=== PATIENT | female | born 1980 | race Caucasian/White ===

== ENCOUNTER 2021-12-24 09:41 | Emergency (ER) | payer BC ==
[2021-12-24] VITALS (8 sets, daily range): BP systolic 113–140; BP diastolic 66–82
[~2021-12-24] VITALS: Ht 157.5 cm; Wt 68.0 kg
[~2021-12-24 09:41] MED LIST: ATENOLOL25 MG PO; ATENOLOL50 MG PO; IRON325 MG PO; KEFLEX500 MG PO; LABETALOL100 MG PO; LISINOPRIL10 MG PO; LISINOPRIL20 MG PO; MAXIDE1 COMBO PO; METFORMIN500 MG PO; MOTRIN800 MG PO; NAPROSYN375 MG PO; OB COMPLET2; PROPYLTHIOUR50 MG; PROPYLTHIOUR50 MG PO; TAPAZOLE10 MG PO; TENORMIN50 MG PO; TRAZODONE50 MG PO; ULTRAM50 MG OR; WELLBUTRIN SR100 MG PO; ZOFRAN ODT4 MG PO; ZOFRAN4 MG/TAB PO
[2021-12-24] MEDS ORDERED: OZEMPIC2 MG/1.5 M (10:00)
[2021-12-24 10:10] LABS: HEMATOCRIT 35.9 % (37.0-47.0); HEMOGLOBIN 11.7 g/dl (12.0-16.0); IMMATURE GRANULOCYTES 0.1 % (0.0-5.0); MEAN CELL VOLUME 93.7 fL CALC (80.0-100.0); MEAN CORPUSCULAR HGB 30.5 pG CALC (26.0-32.0); MEAN CORPUSCULAR HGB CONC 32.6 g/dL CAL (32.0-36.0); NEUT# 7.61 thou/uL (2.00-7.15); RED BLOOD COUNT 3.83 mill/uL (4.20-5.60); RED CELL DISTRI WIDTH 13.2 % (11.5-15.5)
[2021-12-24 10:22] LABS: ALBUMIN 4.3 g/dL (3.2-5.0); ALKALINE PHOSPHATASE 101 u/l (38-126); ANION GAP 15 (6-22 (CALC)); BUN 19 mg/dL (7-17); BUN/CREATININE RATIO 19 (12-20 (CALC)); CARBON DIOXIDE 24 mmol/l (22-30); CHLORIDE 103 mmol/l (95-108); GFR > 60 ML/MIN (>=60 (CALC)); GFR FOR AFR.AMER. > 60 ML/MIN (>=60 (CALC)); POTASSIUM 4.3 mmol/l (3.5-5.1); SGOT/AST 31 u/l (14-36); SODIUM 137 mmol/l (137-146); TOTAL PROTEIN 7.8 g/dL (6.3-8.2)
[2021-12-24 10:26] LABS: BILIRUBIN, TOTAL 0.6 mg/dL (0.0-1.4)
[2021-12-24 10:56] LABS: URINE BILIRUBIN - DIPSTICK NEGATIVE (NEGATIVE); URINE BLOOD DIPSTICK MODERATE (NEGATIVE); URINE COLOR YELLOW; URINE GLUCOSE - DIPSTICK NEGATIVE (NEGATIVE); URINE KETONE NEGATIVE (NEGATIVE); URINE LEUK ESTERASE TRACE (NEGATIVE); URINE NITRITE - DIPSTICK NEGATIVE (Negative); URINE PH 5.5 (4.5-8.0); URINE PROTEIN - DIPSTICK NEGATIVE (NEG-TRACE); URINE SPECIFIC GRAVITY 1.025; URINE UROBILINOGEN - DIPSTICK 0.2 E.U./dL (0.2)
[2021-12-24 11:07] LABS: URINE SQUAMOUS EPITHELIAL CELL FEW EPI/hpf (0-FEW); URINE WBC 0-2 WBC/hpf (0-5)
[2021-12-24] MEDS ORDERED: ONDANSETRON4 MG PO (11:29)
== END 2021-12-24 11:34 | disposition home or self-care (01) | DRG 392 ==
LOC: ED 09:41
PROVIDERS: Family Medicine
DX: R10.30 Lower abdominal pain, unspecified (principal); N83.202 Unspecified ovarian cyst, left side; E11.22 Type 2 diabetes mellitus with diabetic chronic kidney disease; I12.9 Hypertensive chronic kidney disease with stage 1 through stage 4 chronic kidney disease, or unspecified chronic kidney disease; N18.9 Chronic kidney disease, unspecified; Z79.84 Long term (current) use of oral hypoglycemic drugs

== ENCOUNTER 2022-03-25 06:31 | Emergency (ER) | payer BC ==
[~2022-03-25] VITALS: Ht 157.5 cm; Wt 74.0 kg
[~2022-03-25 06:31] MED LIST changes: +METFORMIN500 M2 PO; +ONDANSETRON4 MG PO; +OZEMPIC2 MG/1.5 M
[2022-03-25 07:14] LABS: IMMATURE GRANULOCYTES 0.2 % (0.0-5.0); MEAN CELL VOLUME 94.9 fL CALC (80.0-100.0); MEAN CORPUSCULAR HGB 30.8 pG CALC (26.0-32.0); MEAN CORPUSCULAR HGB CONC 32.4 g/dL CAL (32.0-36.0); NEUT# 8.36 thou/uL (2.00-7.15); RED BLOOD COUNT 3.9 mill/uL (4.20-5.60); RED CELL DISTRI WIDTH 13.3 % (11.5-15.5); URINE BILIRUBIN - DIPSTICK NEGATIVE (NEGATIVE); URINE BLOOD DIPSTICK NEGATIVE (NEGATIVE); URINE COLOR YELLOW; URINE GLUCOSE - DIPSTICK NEGATIVE (NEGATIVE); URINE KETONE TRACE mg/dL (NEGATIVE); URINE LEUK ESTERASE NEGATIVE (NEGATIVE); URINE PROTEIN - DIPSTICK NEGATIVE (NEG-TRACE); URINE SPECIFIC GRAVITY >=1.030; URINE UROBILINOGEN - DIPSTICK 0.2 E.U./dL (0.2)
[2022-03-25 07:16] LABS: URINE NITRITE - DIPSTICK NEGATIVE (Negative)
[2022-03-25 07:28] LABS: ALBUMIN 4.2 g/dL (3.2-5.0); BILIRUBIN, TOTAL 0.6 mg/dL (0.0-1.4); CREATININE 1.4 mg/dL (0.5-1.0); POTASSIUM 4.3 mmol/l (3.5-5.1); TOTAL PROTEIN 7.6 g/dL (6.3-8.2)
[2022-03-25] MEDS ORDERED: MAXZIDE-25MG1 COMBO PO (07:43)
[2022-03-25 08:17] VITALS: BP 121/71
[2022-03-25 08:30] VITALS: BP 116/71
[2022-03-25] MEDS ORDERED: ONDANSETRON4 MG PO (08:42)
[2022-03-25] MEDS ORDERED: PREVACID30 M3 PO (08:42)
[2022-03-25 09:00] VITALS: BP 113/71
== END 2022-03-25 09:16 | disposition home or self-care (01) | DRG 392 ==
LOC: ED 06:31
PROVIDERS: Family Medicine
DX: R10.13 Epigastric pain (principal); K52.9 Noninfective gastroenteritis and colitis, unspecified
CPT/HCPCS: Q9967

== ENCOUNTER 2023-08-18 11:30 | Inpatient (IN) | payer OTHER ==
[~2023-08-18] VITALS: Ht 157.5 cm; Wt 72.8 kg
[~2023-08-18 11:30] MED LIST changes: +AMOX/K CLAV875 M1 PO; +BUPROPION HCL150 MG PO; +LISINOPRIL20 M1 PO; +MAXZIDE-25MG1 COMBO PO; +MULTIVITAMI1 PO; +PREVACID30 M3 PO; +PROZAC10 MG PO; +TRULICITY1.5 MG/0.5
[2023-08-18 12:57] VITALS: BP 121/68
--- NOTE | 2023-08-18 13:00 | NUR ---
PT ARRIVED TO [facility] VIA AMBULATORY. PT A/OX3 PT NPO ICE CHIPS ONLY NO TELE. IV 20G INSERTED BY RN TO RAC. ON ROOM AIR.PT STATED LAST BM 08/17/23.STATED URINATES WITH NO PROBLEM. PT DENIES ADDITIONAL NEEDS AT THE TIME ALL SAFETY PRECAUTIONS IN PLACE. ALL SAFETY PRECAUTIONS IN PLACE WITH CALL LIGHT IN REACH.
[2023-08-18] MEDS ORDERED: METHIMAZOLE10 MG PO (14:12)
--- NOTE | 2023-08-18 16:03 | NUR ---
PT RECIEVING ABX LATE BOLUS GIVEN FIRST ONLY ONE IV.
--- NOTE | 2023-08-18 18:38 | NUR ---
PT ARRIVED TO [facility] VIA AMBULATORY .DIRECT ADMIT PER . PT A/OX3 RESPIRATIONS ON ROOM AIR. IV SITE INSERTED BY RN. PT STATED VOIDED THIS MORNING. BM 08/17/23 AM . PT DENIES ADDITIONAL NEEDS AT THE TIME OTHER THAN ICE CHIPS. PT AWARE NPO ICE CHIPS ONLY.ALL SAFTEY PRECAUTIONS IN PLACE WITH CALL LIGHT IN REACH.
[2023-08-18 19:38] VITALS: BP 104/56
[2023-08-19 03:53] VITALS: BP 95/54
[2023-08-19 04:30] LABS: BASO% 0.3 % (0-3); EOS% 1.2 % (0-8); IMMATURE GRANULOCYTES 0.1 % (0.0-5.0); LYMPH% 21.7 % (15-41); MEAN CELL VOLUME 97.5 fL CALC (80.0-100.0); MEAN CORPUSCULAR HGB 32.4 pG CALC (26.0-32.0); MEAN CORPUSCULAR HGB CONC 33.2 g/dL CAL (32.0-36.0); MONO% 4.4 % (2-13); NEUT# 5.47 thou/uL (2.00-7.15); NEUT% 72.3 % (42-76); RED BLOOD COUNT 3.24 mill/uL (4.20-5.60); RED CELL DISTRI WIDTH 12.5 % (11.5-15.5)
[2023-08-19 04:39] LABS: HEMATOCRIT 31.6 % (37.0-47.0); HEMOGLOBIN 10.5 g/dl (12.0-16.0)
[2023-08-19 04:50] LABS: CREATININE 1.4 mg/dL (0.5-1.0); POTASSIUM 4.4 mmol/l (3.5-5.1)
--- NOTE | 2023-08-19 07:15 | NUR ---
REPORT RECEIVED FROM VU CARDOZA
[2023-08-19 07:39] VITALS: BP 94/48
--- NOTE | 2023-08-19 07:41 | NUR ---
Patient is NPO, had low BS 71 stated felt weak , orange juice given and small cup of ice, patient now shows no signs of hypoglycemia.
--- NOTE | 2023-08-19 08:50 | NUR ---
PT RESTING IN SEMI FOWLERS POSITION,A&O X3;ASSESSMENT COMPLETED;PT REPORTS MINIMAL ABDOMINAL PAIN AT THIS TIME, DENIES THE NEED FOR PAIN MEDICATION;RESPIRATIONS EVEN AND UNLABORED ON RA,CLEAR LUNG SOUNDS;ABDOMEN SOFT ON PALPATION AND ACTIVE IN ALL 4 QUADRANTS;STRONG PEDAL PULSES;SKIN INTACT;#20G TO RAC INFUSING D5 1/2 NS @ 150ML/HR,SITE APPEARS HEALTHY;ACCUCHECK 71, PT WAS PROVIDED ORANGE JUICE FROM [employer];NPO DIET REINFORCED;PT DENIES ANY ADDITIONAL NEEDS AND IS ENCOURAGED TO CALL FOR ASSISTANCE IF NEEDED;FALL PRECAUTIONS IN PLACE WITH BED IN THE LOWEST POSITION AND CALL LIGHT IN REACH;FREQUENT ROUNDS MADE.
--- NOTE | 2023-08-19 09:00 | NUR ---
CALL PLACED TO . PT CURRENTLY NPO BUT HAS PO MEDICATION ORDERED. AWAITING CALL BACK FOR CLARIFICATION.
--- NOTE | 2023-08-19 11:20 | NUR ---
SPOKE TO . OK TO GIVEN PO MEDICATIONS THIS MORNING.
[2023-08-19 12:00] VITALS: BP 116/64
--- NOTE | 2023-08-19 12:03 | NUR ---
DR ROSS AT BEDSIDE DISCUSSING PLAN OF CARE WITH PATIENT.
--- NOTE | 2023-08-19 13:00 | NUR ---
PT RESTING IN SEMI FOWLERS POSITION WITH VISITOR AT BEDSIDE;RESPIRATIONS EVEN AND AND UNLABORED ON RA;PT DENIES ANY CURRENT PAIN OR NEEDS;IV SITE PATENT INFUSING WITH EASE;DIET ADVANCED AND WATER PROVIDED;PT ENCOURAGED TO CALL FOR ASSISTANCE IF NEEDED;CALL LIGHT IN REACH;FREQUENT ROUNDS MADE.
[2023-08-19 16:00] VITALS: BP 100/53
--- NOTE | 2023-08-19 16:20 | NUR ---
PT RESTING IN SEMI FOWLERS POSITION;RESPIRATIONS EVEN AND UNLABORED ON RA;PT DENIES ANY CURRENT PAIN OR NEEDS;IV SITE TO RAC REMAINS PATENT;ACCUCHECK 141, NO COVERAGE NEEDED;PT ENCOURAGED TO CALL FOR ASSISTANCE IF NEEDED;FALL PRECAUTIONS IN PLACE WITH BED IN THE LOWEST POSITION AND CALL LIGHT IN REACH;FREQUENT ROUNDS MADE.
[2023-08-19 19:25] VITALS: BP 122/67
--- NOTE | 2023-08-19 20:00 | NUR ---
RECEIVED BEDSIDE REPORT FROM DAY NURSE, PT. IN BED, AWAKE & ALERT, HER IN ATTENDANCE, ASSESSMENT DONE, V/S RECORDED, RT AC SL, PATENT, IN PLACE, SHE IS ON GRIS AIR, AD VANDA, NO COMPLAINT NOTED, INSTRUCTED TO CALL FOR NURSE IF ANY ASSISTANCE IN NEDEED, BEDSIDE TABLE & CALL NUNO WITHIN HER REACH.
--- NOTE | 2023-08-20 | NUR ---
NO COMPLAINT NOTED, DOES NOT WANT ANY PAIN MED AT THIS TIME, SAFETY PRECAUTION MAINTAINED.
--- NOTE | 2023-08-20 04:00 | NUR ---
PT. IS IN BED, AWAKE, NO COMPLAINT NOTED, RT. AC SL IN PLACE, AD VANDA TO THE BATHROOM,
[2023-08-20 04:40] VITALS: BP 104/58
[2023-08-20 05:02] VITALS: BP 104/58
[2023-08-20 06:30] VITALS: BP 129/68
[2023-08-20 07:08] VITALS: BP 129/68
--- NOTE | 2023-08-20 07:46 | NUR ---
GOT REPORT FROM MECHANICAL PLANNER NURSE AT BEDSIDE. PATIENT ASSESSED AND IS AOX3. PATIENT DENIES ANY DISTRESS OR CONCERNS. NO QUESTIONS AT THIS TIME. BED ALARM IS ON WITH CALL LIGHT AND BEDSIDE TABLE WITH IN REACH. ADVISED TO CALL IF NEEDING ANYTHING. PATIENT VOICED AGREEMENT.
--- NOTE | 2023-08-20 09:16 | NUR ---
Discharge instructions given. Patient verbalizes understanding of same. Discharged in stable condition via Ambulatory to Home with family. All belongings sent with pt.
== END 2023-08-20 09:15 | disposition home or self-care (01) | DRG 394 ==
LOC: MS2 11:30
PROVIDERS: ADMIT Surgery; ATTEND Surgery
DX: K52.1 Toxic gastroenteritis and colitis (principal); R18.8 Other ascites; T38.3X5A Adverse effect of insulin and oral hypoglycemic [antidiabetic] drugs, initial encounter; E86.0 Dehydration; K80.20 Calculus of gallbladder without cholecystitis without obstruction; E11.22 Type 2 diabetes mellitus with diabetic chronic kidney disease; I12.9 Hypertensive chronic kidney disease with stage 1 through stage 4 chronic kidney disease, or unspecified chronic kidney disease; N18.9 Chronic kidney disease, unspecified; Z79.84 Long term (current) use of oral hypoglycemic drugs; Z79.85 Long-term (current) use of injectable non-insulin antidiabetic drugs
CPT/HCPCS: Q9967

== ENCOUNTER 2024-03-31 10:17 | Day surgery (SDC) | payer OTHER ==
[~2024-03-31] VITALS: Ht 157.5 cm; Wt 79.4 kg
[~2024-03-31 10:17] MED LIST changes: +B COMPLEX FORMU1 TAB PO; +BCP PO; +CIPROFLOXACN500 MG PO; +FARXIGA10 MG PO; +FLORASTOR250 M1 PO; +METHIMAZOLE10 MG PO; +METRONIDAZOLE500 MG PO; +OZEMPIC 8 MG/3M1 INJ SC; +PERCOCET 5/325M1 TAB PO
[2024-03-31] MEDS ORDERED: SODIUM CHLORIDE 0.9% 1,000 ML IV ONE (10:20)
[2024-03-31] MEDS ORDERED: FAMOTIDINE 10MG/ML 2ML SDV IV ONE (10:20)
[2024-03-31 12:54] VITALS: BP 132/84
[2024-03-31] MEDS ORDERED: PROPOFOL 200 MG/20 ML VIAL IV ONE (16:25)
[2024-03-31] MEDS ORDERED: LIDOCAINE HCL 2% 2ML SDV IV ONE (16:25)
== END 2024-03-31 13:20 | disposition home or self-care (01) ==
LOC: ORM 10:17
PROVIDERS: ATTEND Internal Medicine Gastroenterology
DX: K29.70 Gastritis, unspecified, without bleeding (principal); K31.89 Other diseases of stomach and duodenum; K80.20 Calculus of gallbladder without cholecystitis without obstruction; I12.9 Hypertensive chronic kidney disease with stage 1 through stage 4 chronic kidney disease, or unspecified chronic kidney disease; E11.22 Type 2 diabetes mellitus with diabetic chronic kidney disease; N18.30 Chronic kidney disease, stage 3 unspecified; E05.90 Thyrotoxicosis, unspecified without thyrotoxic crisis or storm; Z79.84 Long term (current) use of oral hypoglycemic drugs; Z79.85 Long-term (current) use of injectable non-insulin antidiabetic drugs

== ENCOUNTER 2024-04-10 12:49 | Emergency (ER) | payer OTHER ==
[2024-04-10] VITALS (12 sets, daily range): BP systolic 116–154; BP diastolic 77–92
[~2024-04-10] VITALS: Ht 157.5 cm; Wt 78.0 kg
[2024-04-10 13:24] LABS: BASO% 0.3 % (0-3); EOS% 4.5 % (0-8); IMMATURE GRANULOCYTES 0.1 % (0.0-5.0); LYMPH% 24.7 % (15-41); MEAN CELL VOLUME 95.2 fL CALC (80.0-100.0); MEAN CORPUSCULAR HGB 29.8 pG CALC (26.0-32.0); MEAN CORPUSCULAR HGB CONC 31.3 g/dL CAL (32.0-36.0); MONO% 5.2 % (2-13); NEUT# 5.59 thou/uL (2.00-7.15); NEUT% 65.2 % (42-76); RED BLOOD COUNT 4.19 mill/uL (4.20-5.60); RED CELL DISTRI WIDTH 14.2 % (11.5-15.5)
[2024-04-10 13:27] LABS: HEMATOCRIT 39.9 % (37.0-47.0); HEMOGLOBIN 12.5 g/dl (12.0-16.0)
[2024-04-10 13:43] LABS: ALBUMIN 4.3 g/dL (3.2-5.0); BILIRUBIN, TOTAL 0.5 mg/dL (0.02-1.3); CREATININE 1.3 mg/dL (0.5-1.0); TOTAL PROTEIN 8.3 g/dL (6.3-8.2)
[2024-04-10 14:09] LABS: URINE BILIRUBIN - DIPSTICK Negative (NEGATIVE); URINE BLOOD DIPSTICK Negative (NEGATIVE); URINE GLUCOSE - DIPSTICK >=1000 mg/dL (NEGATIVE); URINE KETONE Negative (NEGATIVE); URINE LEUK ESTERASE Negative (NEGATIVE); URINE NITRITE - DIPSTICK Negative (Negative); URINE PROTEIN - DIPSTICK Negative (NEG-TRACE); URINE SPECIFIC GRAVITY 1.015; URINE UROBILINOGEN - DIPSTICK 0.2 E.U./dL (0.2)
[2024-04-10 14:10] LABS: URINE COLOR Yellow
[2024-04-10] MEDS ORDERED: ELIQUIS STARTER5 MG PO (15:24)
== END 2024-04-10 16:34 | disposition home or self-care (01) | DRG 301 ==
LOC: ED 12:49
PROVIDERS: Family Medicine
DX: I82.402 Acute embolism and thrombosis of unspecified deep veins of left lower extremity (principal); R10.31 Right lower quadrant pain; R10.32 Left lower quadrant pain; I12.9 Hypertensive chronic kidney disease with stage 1 through stage 4 chronic kidney disease, or unspecified chronic kidney disease; E11.22 Type 2 diabetes mellitus with diabetic chronic kidney disease; N18.9 Chronic kidney disease, unspecified; Z79.84 Long term (current) use of oral hypoglycemic drugs
CPT/HCPCS: Q9967

== ENCOUNTER 2024-05-07 12:05 | Emergency (ER) | payer OTHER ==
[2024-05-07] VITALS (18 sets, daily range): BP systolic 89–129; BP diastolic 42–71
[~2024-05-07] VITALS: Ht 157.5 cm; Wt 80.0 kg
[~2024-05-07 12:05] MED LIST changes: +ELIQUIS STARTER5 MG PO
[2024-05-07 13:05] LABS: BASO% 0.3 % (0-3); EOS% 2.1 % (0-8); IMMATURE GRANULOCYTES 0.2 % (0.0-5.0); LYMPH% 23.8 % (15-41); MEAN CELL VOLUME 94.8 fL CALC (80.0-100.0); MEAN CORPUSCULAR HGB 30.2 pG CALC (26.0-32.0); MEAN CORPUSCULAR HGB CONC 31.8 g/dL CAL (32.0-36.0); MONO% 3.7 % (2-13); NEUT# 6.35 thou/uL (2.00-7.15); NEUT% 69.9 % (42-76); RED BLOOD COUNT 3.48 mill/uL (4.20-5.60); RED CELL DISTRI WIDTH 14.3 % (11.5-15.5)
[2024-05-07 13:09] LABS: HEMOGLOBIN 10.5 g/dl (12.0-16.0)
[2024-05-07 13:13] LABS: URINE BILIRUBIN - DIPSTICK Negative (NEGATIVE); URINE BLOOD DIPSTICK Moderate (NEGATIVE); URINE GLUCOSE - DIPSTICK >=1000 mg/dL (NEGATIVE); URINE KETONE Negative (NEGATIVE); URINE NITRITE - DIPSTICK Negative (Negative); URINE PH 5.5 (4.5-8.0); URINE PROTEIN - DIPSTICK Negative (NEG-TRACE); URINE UROBILINOGEN - DIPSTICK 0.2 E.U./dL (0.2)
[2024-05-07 13:14] LABS: URINE BACTERIA FEW hpf; URINE COLOR Yellow; URINE LEUK ESTERASE Small (NEGATIVE); URINE SQUAMOUS EPITHELIAL CELL FEW EPI/hpf (0-FEW)
[2024-05-07 13:18] LABS: ALKALINE PHOSPHATASE 105 u/l (38-126); ANION GAP 11 (6-22 (CALC)); BILIRUBIN, TOTAL 0.3 mg/dL (0.02-1.3); BUN 22 mg/dL (7-17); BUN/CREATININE RATIO 13 (12-20 (CALC)); CARBON DIOXIDE 21 mmol/l (22-30); CHLORIDE 108 mmol/l (95-108); CREATININE 1.7 mg/dL (0.5-1.0); ESTIMATED GFR 38 ML/MIN (>=90 (CALC)); POTASSIUM 3.9 mmol/l (3.5-5.1); SGOT/AST 25 u/l (14-36); SODIUM 136 mmol/l (137-146); TOTAL PROTEIN 7.2 g/dL (6.3-8.2)
[2024-05-07 13:21] LABS: D-DIMER 0.67 mg/L (0.19-0.60)
[2024-05-07 13:24] LABS: INTERNATIONAL NORMALIZED RATIO 1.1 RATIO (0.7-1.3)
[2024-05-07 13:27] LABS: PROTHROMBIN TIME 10.2 SECONDS (9.0-12.5)
[2024-05-07] MEDS ORDERED: SODIUM CHLORIDE 0.9% 1,000 ML IV ONE (14:00)
[2024-05-07] MEDS ORDERED: ONDANSETRON 4 MG/TAB ODT SL ONE (14:55)
[2024-05-07] MEDS ORDERED: AMOXICILLIN875 MG PO (16:51)
[2024-05-09] MEDS ORDERED: LEVOFLOXACIN750 MG PO ×2 (14:46→14:53)
== END 2024-05-07 17:20 | disposition home or self-care (01) | DRG 194 ==
LOC: ED 12:05
PROVIDERS: Nurse Practitioner Family
DX: J18.9 Pneumonia, unspecified organism (principal); N39.0 Urinary tract infection, site not specified; B96.1 Klebsiella pneumoniae [K. pneumoniae] as the cause of diseases classified elsewhere; I12.9 Hypertensive chronic kidney disease with stage 1 through stage 4 chronic kidney disease, or unspecified chronic kidney disease; E11.22 Type 2 diabetes mellitus with diabetic chronic kidney disease; N18.9 Chronic kidney disease, unspecified; D64.9 Anemia, unspecified; Z86.718 Personal history of other venous thrombosis and embolism; Z79.01 Long term (current) use of anticoagulants; Z79.84 Long term (current) use of oral hypoglycemic drugs; Z79.85 Long-term (current) use of injectable non-insulin antidiabetic drugs; Z20.822 Contact with and (suspected) exposure to COVID-19
CPT/HCPCS: Q9967

== ENCOUNTER 2024-07-13 17:44 | Emergency (ER) | payer OTHER ==
[~2024-07-13] VITALS: Ht 157.5 cm; Wt 79.3 kg
[2024-07-13] VITALS (14 sets, daily range): BP systolic 93–134; BP diastolic 57–72
[~2024-07-13 17:44] MED LIST changes: +AMOXICILLIN875 MG PO; +LEVOFLOXACIN750 MG PO
[2024-07-13 18:36] LABS: BASO% 0.3 % (0-3); EOS% 3.1 % (0-8); HEMATOCRIT 33.4 % (37.0-47.0); HEMOGLOBIN 10.5 g/dl (12.0-16.0); IMMATURE GRANULOCYTES 0.3 % (0.0-5.0); LYMPH% 35.1 % (15-41); MEAN CELL VOLUME 97.7 fL CALC (80.0-100.0); MEAN CORPUSCULAR HGB 30.7 pG CALC (26.0-32.0); MEAN CORPUSCULAR HGB CONC 31.4 g/dL CAL (32.0-36.0); MONO% 5.5 % (2-13); NEUT# 4.17 thou/uL (2.00-7.15); NEUT% 55.7 % (42-76); RED BLOOD COUNT 3.42 mill/uL (4.20-5.60); RED CELL DISTRI WIDTH 14.2 % (11.5-15.5)
[2024-07-13 18:49] LABS: ALBUMIN 3.8 g/dL (3.2-5.0); ALKALINE PHOSPHATASE 90 u/l (38-126); ANION GAP 7 (6-22 (CALC)); BILIRUBIN, TOTAL 0.1 mg/dL (0.02-1.3); BUN 30 mg/dL (7-17); BUN/CREATININE RATIO 20 (12-20 (CALC)); CARBON DIOXIDE 25 mmol/l (22-30); CHLORIDE 108 mmol/l (95-108); CREATININE 1.5 mg/dL (0.5-1.0); ESTIMATED GFR 44 ML/MIN (>=90 (CALC)); POTASSIUM 4.5 mmol/l (3.5-5.1); SGOT/AST 18 u/l (14-36); SODIUM 136 mmol/l (137-146); TOTAL PROTEIN 6.4 g/dL (6.3-8.2)
[2024-07-13] MEDS ORDERED: ONDANSETRON HCl 4 MG/2 ML SDV IV ONE (19:50)
[2024-07-13] MEDS ORDERED: MORPHINE SULFATE 4 MG/ML VIAL IV ONE (19:50)
[2024-07-13] MEDS ORDERED: HYDROCO/APAP1 TA9 PO (21:51)
[2024-07-13] MEDS ORDERED: HYDROcodone 5 MG/Acetaminophen 325 MG/COMBO PO ONE (21:55)
[2024-07-13] MEDS ORDERED: ONDANSETRON 4 MG/TAB ODT SL ONE (21:55)
[2024-07-13] MEDS ORDERED: ZOFRAN4 MG/TAB PO (21:56)
== END 2024-07-13 22:07 | disposition home or self-care (01) | DRG 313 ==
LOC: ED 17:44
PROVIDERS: Family Medicine
DX: R07.89 Other chest pain (principal); I12.9 Hypertensive chronic kidney disease with stage 1 through stage 4 chronic kidney disease, or unspecified chronic kidney disease; E11.22 Type 2 diabetes mellitus with diabetic chronic kidney disease; N18.30 Chronic kidney disease, stage 3 unspecified; E03.9 Hypothyroidism, unspecified; Z86.718 Personal history of other venous thrombosis and embolism; Z79.84 Long term (current) use of oral hypoglycemic drugs

== ENCOUNTER 2024-09-25 17:46 | Emergency (ER) | payer OTHER ==
[~2024-09-25] VITALS: Ht 157.5 cm; Wt 84.2 kg
[~2024-09-25 17:46] MED LIST changes: +HYDROCO/APAP1 TA9 PO
[2024-09-25] MEDS ORDERED: BACTRIM DS1 TAB PO (20:44)
[2024-09-25 21:09] VITALS: BP 140/85
== END 2024-09-25 21:09 | disposition home or self-care (01) ==
LOC: ED 17:46
DX: L02.31 Cutaneous abscess of buttock (principal); I12.9 Hypertensive chronic kidney disease with stage 1 through stage 4 chronic kidney disease, or unspecified chronic kidney disease; E11.22 Type 2 diabetes mellitus with diabetic chronic kidney disease; N18.9 Chronic kidney disease, unspecified; Z86.718 Personal history of other venous thrombosis and embolism; Z79.84 Long term (current) use of oral hypoglycemic drugs

== ENCOUNTER 2024-10-20 06:49 | Observation (INO) | payer OTHER ==
[~2024-10-20] VITALS: Ht 157.5 cm; Wt 83.9 kg
[2024-10-20] VITALS (16 sets, daily range): BP systolic 99–149; BP diastolic 52–80
[~2024-10-20 06:49] MED LIST changes: +BACTRIM DS1 TAB PO
[2024-10-20] MEDS ORDERED: MORPHINE SULFATE 4 MG/ML VIAL IV STA (07:17)
[2024-10-20] MEDS ORDERED: ONDANSETRON HCl 4 MG/2 ML SDV IV STA (07:17)
[2024-10-20] MEDS ORDERED: SODIUM CHLORIDE 0.9% 1,000 ML IV STA (07:17)
[2024-10-20] MEDS ORDERED: KETOROLAC TROMETHAMINE 30 MG/ML SDV IV STA (07:17)
[2024-10-20 07:33] LABS: BASO% 0.3 % (0-3); EOS% 2.2 % (0-8); HEMATOCRIT 37.7 % (37.0-47.0); HEMOGLOBIN 11.8 g/dl (12.0-16.0); IMMATURE GRANULOCYTES 0.9 % (0.0-5.0); LYMPH% 12.3 % (15-41); MEAN CELL VOLUME 97.7 fL CALC (80.0-100.0); MEAN CORPUSCULAR HGB 30.6 pG CALC (26.0-32.0); MEAN CORPUSCULAR HGB CONC 31.3 g/dL CAL (32.0-36.0); MONO% 4.6 % (2-13); NEUT# 9.01 thou/uL (2.00-7.15); NEUT% 79.7 % (42-76); RED BLOOD COUNT 3.86 mill/uL (4.20-5.60); RED CELL DISTRI WIDTH 14.8 % (11.5-15.5)
[2024-10-20 07:51] LABS: URINE BILIRUBIN - DIPSTICK Negative (NEGATIVE); URINE BLOOD DIPSTICK Negative (NEGATIVE); URINE GLUCOSE - DIPSTICK 500 mg/dL (NEGATIVE); URINE KETONE Negative (NEGATIVE); URINE LEUK ESTERASE Negative (NEGATIVE); URINE NITRITE - DIPSTICK Negative (Negative); URINE PH 5.5 (4.5-8.0); URINE PROTEIN - DIPSTICK Negative (NEG-TRACE); URINE UROBILINOGEN - DIPSTICK 0.2 E.U./dL (0.2)
[2024-10-20 07:57] LABS: URINE COLOR Yellow
[2024-10-20 07:59] LABS: ALBUMIN 4.2 g/dL (3.2-5.0); CREATININE 1.3 mg/dL (0.5-1.0); TOTAL PROTEIN 7.5 g/dL (6.3-8.2)
[2024-10-20 08:08] LABS: BILIRUBIN, TOTAL 0.7 mg/dL (0.02-1.3); POTASSIUM 4.1 mmol/l (3.5-5.1)
[2024-10-20] MEDS ORDERED: PIPERACILLIN Sodium-Tazobactam 3.375 GM in SODIUM CHLORIDE 0.9% 100 ML IV ONE (09:10)
[2024-10-20] MEDS ORDERED: LIDOcaine HCl 1% (Local Anesth.) 20 ML VIAL ONE (10:01)
[2024-10-20] MEDS ORDERED: FAMOTIDINE 10MG/ML 2ML SDV IV ONE (11:08)
[2024-10-20] MEDS ORDERED: HYDROmorphone HCL 2 MG/AMP ONE (12:49)
[2024-10-20] MEDS ORDERED: SODIUM CHLORIDE 3,000 ML BAG FOR IRRIGATION IR ONE (13:19)
[2024-10-20] MEDS ORDERED: STERILE WATER FOR IRRIGATION 1,000 ML BTL IR ONE (13:19)
[2024-10-20] MEDS ORDERED: ROCURONIUM BROMIDE 10 MG/ML 5ML VIAL IV ONE (15:05)
[2024-10-20] MEDS ORDERED: PROPOFOL 200 MG/20 ML VIAL IV ONE (15:05)
[2024-10-20] MEDS ORDERED: LIDOCAINE HCL 2% 2ML SDV IV ONE (15:05)
[2024-10-20] MEDS ORDERED: ACETAMINOPHEN 1,000 MG/100 ML VIAL IV ONE (15:05)
[2024-10-20] MEDS ORDERED: SUGAMMADEX SODIUM 200 MG/2 ML SDV IV ONE (15:05)
[2024-10-20] MEDS ORDERED: SUCCINYLCHOLINE CHLORIDE 20 MG/ML 10ML VIAL IV ONE (15:05)
[2024-10-20] MEDS ORDERED: SODIUM CHLORIDE 0.9% 1,000 ML BAG IV ONE (15:05)
== END 2024-10-20 13:34 | disposition home or self-care (01) ==
LOC: ED 06:49 → ED-I 09:20 → ED 09:22 → MS2 09:23
PROVIDERS: Emergency Medicine; ADMIT Surgery; ATTEND Surgery
DX: K35.30 Acute appendicitis with localized peritonitis, without perforation or gangrene (principal); I12.9 Hypertensive chronic kidney disease with stage 1 through stage 4 chronic kidney disease, or unspecified chronic kidney disease; E11.22 Type 2 diabetes mellitus with diabetic chronic kidney disease; N18.9 Chronic kidney disease, unspecified; E28.2 Polycystic ovarian syndrome; Z86.718 Personal history of other venous thrombosis and embolism; Z79.84 Long term (current) use of oral hypoglycemic drugs; Z79.85 Long-term (current) use of injectable non-insulin antidiabetic drugs
CPT/HCPCS: J0131; J1171; J2405; J2543; Q9967